=== PATIENT | male | born 1945 | race African-American/Black ===

== ENCOUNTER 2019-12-11 11:01 | Inpatient (IN) ==
[2019-12-11 11:34] LABS: Basophils % 0.4 % (0.0-0.8); Eosinophils # 0.2 10*3/uL (0.0-0.87); Eosinophils % 3.1 % (0.00-10.9); Hematocrit 22.5 VOL% (42.0-52.0); Hemoglobin 6.9 GM/DL (14.0-18.0); Immature Granulocytes Absolute 0.27 #; Lymphocytes # 1.6 10*3/uL (1.4-4.0); Mean Corpuscular HGB Conc 30.7 GM/DL (32-36); Mean Corpuscular Volume 99.6 FL (87-102); Mean Platelet Volume 10.4 FL (9.6-12.0); Monocytes % 8.4 % (1.7-12.7); Neutrophils % 61.1 % (38.7-73.9); Platelet Count 255 T/CUMM (130-400); Red Blood Count 2.26 MC/CUMM (3.8-5.5); Red Cell Distribution Width 14.6 % (9.3-17.3); White Blood Count 6.8 T/CUMM (4-12)
[2019-12-11 11:59] LABS: Albumin 3.4 G/DL (3.4-5.0); Bilirubin,Total 0.4 MG/DL (0.2-1.0); Osmolality,Calculated 306.8 MOS/KG (273-304)
[2019-12-11] MEDS ORDERED: FUROSEMIDE 40 MG/4 ML VIAL IV STA (13:04)
[2019-12-11] MEDS ORDERED: ONDANSETRON 4 MG/2 ML VIAL IV PRN (13:30)
[2019-12-11] MEDS ORDERED: BISACODYL 5 MG TABLET PO PRN (13:30)
[2019-12-11] MEDS ORDERED: GLUCAGON 1 MG VIAL IM PRN (13:42)
[2019-12-11] MEDS ORDERED: DEXTROSE 10% 250 ML BAG IV PRN (13:42)
[2019-12-11 14:07] LABS: % Iron Saturation 27.8 % (18-50); Ferritin 364.9 ng/ml (26-388)
[2019-12-11 14:13] LABS: Risk Ratio 1.77; Thyroid Stimulating Hormone 2.48 uIU/ml (0.358-3.74); VLDL CHOLESTEROL 18.8 MG/DL
[2019-12-11 14:14] LABS: Basophils % 0.6 % (0.0-0.8); Eosinophils # 0.2 10*3/uL (0.0-0.87); Eosinophils % 2.9 % (0.00-10.9); Hematocrit 22.4 VOL% (42.0-52.0); Immature Granulocytes % 4.1 %; Immature Granulocytes Absolute 0.28 #; Lymphocytes # 1.6 10*3/uL (1.4-4.0); Lymphocytes % 23.1 % (21.2-54.2); Mean Corpuscular HGB Conc 31.3 GM/DL (32-36); Mean Corpuscular Volume 99.1 FL (87-102); Mean Platelet Volume 11.9 FL (9.6-12.0); Monocytes % 9.7 % (1.7-12.7); NRBC # 0.02 10*3/uL; Neutrophils % 59.6 % (38.7-73.9); Platelet Count 273 T/CUMM (130-400); Red Blood Count 2.26 MC/CUMM (3.8-5.5); Red Cell Distribution Width 14.5 % (9.3-17.3); White Blood Count 6.8 T/CUMM (4-12)
[2019-12-11 14:40] LABS: Folate 7.9 NG/ML (5.4-24.0); Vitamin B12 555 PG/ML (211-911)
[2019-12-11 15:29] LABS: Apearance,Urine CLEAR (Clear); Bacteria,Urine Occasional /HPF (Few); Bilirubin,Urine Negative (Negative); Blood, Urine Negative (Negative); Glucose,Urine (UA) 50 mg/dL (Negative); Ketones,Urine Negative (Negative); Mucus,Urine Occasional /LPF (Occasional); Nitrite,Urine Negative (Negative); Protein,Urine >=500 MG/DL; Squamous Epithelial Cell,Urine Occasional /HPF (0-10); Urine Color Straw (Yellow); Urine Urobilinogen < 2.0 EU/DL (0.2-1.0); WBC,Urine 1 /HPF (0-6)
[2019-12-11] MEDS: INSULIN LISPRO 100 UNIT/ML SUBCUT SCH ×2 (15:30→21:03)
[2019-12-11] MEDS ORDERED: INFLUENZA VIRUS VACCINE 0.5 ML SYRINGE IM ONE (15:34)
[2019-12-11 15:36] LABS: Sedimentation Rate-Westergren 91 MM/HR (0-20)
[2019-12-11] MEDS: hydrALAZINE 25 MG TABLET PO SCH ×2 (15:36→21:02)
[2019-12-11] MEDS ORDERED: FUROSEMIDE 40 MG/4 ML VIAL IV SCH (16:00)
[2019-12-11] MEDS: ATORVASTATIN 80 MG TABLET PO SCH (21:03)
[2019-12-11] MEDS: TAMSULOSIN 0.4 MG CAPSULE PO SCH (21:03)
[2019-12-12 05:11] LABS: Basophils % 0.4 % (0.0-0.8); Eosinophils # 0.2 10*3/uL (0.0-0.87); Immature Granulocytes % 2.6 %; Immature Granulocytes Absolute 0.13 #; Lymphocytes % 19.6 % (21.2-54.2); Mean Corpuscular HGB Conc 30.6 GM/DL (32-36); Mean Platelet Volume 10.8 FL (9.6-12.0); Monocytes % 11.9 % (1.7-12.7); Neutrophils % 62.5 % (38.7-73.9); Platelet Count 190 T/CUMM (130-400); Red Cell Distribution Width 14.4 % (9.3-17.3); White Blood Count 5.1 T/CUMM (4-12)
[2019-12-12 05:14] LABS: Hemoglobin 5.5 GM/DL (14.0-18.0)
[2019-12-12 05:36] LABS: Osmolality,Calculated 306.7 MOS/KG (273-304)
[2019-12-12 06:38] LABS: Hematocrit 18.2 VOL% (42.0-52.0)
[2019-12-12 06:40] LABS: Hemoglobin 5.5 GM/DL (14.0-18.0)
[2019-12-12] MEDS ORDERED: SODIUM CHLORIDE 0.9% 1,000 ML IV PRN (06:46)
[2019-12-12] MEDS ORDERED: DEXTROSE 10% 250 ML BAG IV PRN (07:00)
[2019-12-12] MEDS: INSULIN LISPRO 100 UNIT/ML SUBCUT SCH ×4 (08:52→20:47)
[2019-12-12] MEDS: FUROSEMIDE 40 MG/4 ML VIAL IV SCH ×2 (08:59→16:59)
[2019-12-12] MEDS: ISOSORBIDE MONONITRATE 60 MG TABLET PO SCH (08:59)
[2019-12-12] MEDS: METOPROLOL SUCCINATE XL 50 MG TABLET PO SCH (08:59)
[2019-12-12] MEDS: CHOLECALCIFEROL 5,000 UNIT TABLET PO SCH (08:59)
[2019-12-12] MEDS: TAMSULOSIN 0.4 MG CAPSULE PO SCH ×2 (09:00→20:46)
[2019-12-12] MEDS: PANTOPRAZOLE 40 MG TABLET PO SCH (09:00)
[2019-12-12] MEDS: hydrALAZINE 25 MG TABLET PO SCH (09:00)
[2019-12-12] MEDS: amLODIPine 10 MG TABLET PO SCH (09:00)
[2019-12-12 19:03] LABS: Hematocrit 22.3 VOL% (42.0-52.0)
[2019-12-12] MEDS: ATORVASTATIN 80 MG TABLET PO SCH (20:46)
[2019-12-13 05:09] LABS: Basophils % 0.7 % (0.0-0.8); Eosinophils # 0.1 10*3/uL (0.0-0.87); Eosinophils % 2.6 % (0.00-10.9); Hematocrit 20.6 VOL% (42.0-52.0); Hemoglobin 6.5 GM/DL (14.0-18.0); Immature Granulocytes % 1.6 %; Immature Granulocytes Absolute 0.09 #; Lymphocytes % 18.3 % (21.2-54.2); Mean Corpuscular HGB Conc 31.6 GM/DL (32-36); Mean Corpuscular Volume 98.6 FL (87-102); Mean Platelet Volume 10.9 FL (9.6-12.0); Monocytes % 12.2 % (1.7-12.7); Neutrophils % 64.6 % (38.7-73.9); Platelet Count 201 T/CUMM (130-400); Red Blood Count 2.09 MC/CUMM (3.8-5.5); Red Cell Distribution Width 14.7 % (9.3-17.3); White Blood Count 5.5 T/CUMM (4-12)
[2019-12-13 05:29] LABS: Osmolality,Calculated 305.8 MOS/KG (273-304)
[2019-12-13] MEDS: INSULIN LISPRO 100 UNIT/ML SUBCUT SCH ×4 (08:07→22:02)
[2019-12-13] MEDS: FUROSEMIDE 40 MG/4 ML VIAL IV SCH ×2 (08:47→17:32)
[2019-12-13] MEDS: TAMSULOSIN 0.4 MG CAPSULE PO SCH ×2 (08:48→20:56)
[2019-12-13] MEDS: PANTOPRAZOLE 40 MG TABLET PO SCH (08:48)
[2019-12-13] MEDS: METOPROLOL SUCCINATE XL 50 MG TABLET PO SCH (08:48)
[2019-12-13] MEDS: ISOSORBIDE MONONITRATE 60 MG TABLET PO SCH (08:48)
[2019-12-13] MEDS: amLODIPine 10 MG TABLET PO SCH (08:48)
[2019-12-13] MEDS: BISACODYL 5 MG TABLET PO SCH (08:48)
[2019-12-13] MEDS: CHOLECALCIFEROL 5,000 UNIT TABLET PO SCH (08:48)
[2019-12-13] MEDS ORDERED: ceFAZolin 1,000 MG in SYRINGE 1 EACH IV ONE (13:56)
[2019-12-13] MEDS ORDERED: BUPIVACAINE 0.5% 50 ML VIAL ONE (14:51)
[2019-12-13] MEDS ORDERED: LIDOCAINE 1%/EPI INJ 20 ML VIAL ONE (14:51)
[2019-12-13] MEDS ORDERED: HEPARIN 5,000 UNIT/1 ML VIAL ONE (14:51)
[2019-12-13] MEDS ORDERED: propofoL 200 MG/20 ML VIAL IV ONE (16:57)
[2019-12-13] MEDS ORDERED: LIDOCAINE 2% 5 ML VIAL ONE (16:58)
[2019-12-13] MEDS ORDERED: fentaNYL 100 MCG/2 ML VIAL ONE (16:58)
[2019-12-13 17:13] LABS: Hepatitis B Core IgM Quant 0.08 Index; Hepatitis B Surface Ag Quant < 0.10 Index; Hepatitis B Surface Ag Result Negative (Negative); Hepatitis C Virus Ab Quant 0.03 Index; Hepatitis C Virus Ab Result Negative (Negative)
[2019-12-13] MEDS: ATORVASTATIN 80 MG TABLET PO SCH (20:56)
[2019-12-14 04:56] LABS: Basophils % 0.6 % (0.0-0.8); Eosinophils # 0.1 10*3/uL (0.0-0.87); Eosinophils % 1.9 % (0.00-10.9); Hematocrit 23.4 VOL% (42.0-52.0); Hemoglobin 7.6 GM/DL (14.0-18.0); Immature Granulocytes % 1.3 %; Immature Granulocytes Absolute 0.09 #; Lymphocytes # 0.8 10*3/uL (1.4-4.0); Lymphocytes % 11.2 % (21.2-54.2); Mean Corpuscular HGB Conc 32.5 GM/DL (32-36); Mean Corpuscular Volume 95.9 FL (87-102); Mean Platelet Volume 11.1 FL (9.6-12.0); Monocytes % 10.6 % (1.7-12.7); NRBC # 0.03 10*3/uL; Neutrophils % 74.4 % (38.7-73.9); Platelet Count 195 T/CUMM (130-400); Red Blood Count 2.44 MC/CUMM (3.8-5.5); Red Cell Distribution Width 15.4 % (9.3-17.3); White Blood Count 6.9 T/CUMM (4-12)
[2019-12-14 05:50] LABS: Osmolality,Calculated 295.3 MOS/KG (273-304)
[2019-12-14] MEDS: INSULIN LISPRO 100 UNIT/ML SUBCUT SCH (08:24)
[2019-12-14] MEDS: FUROSEMIDE 40 MG/4 ML VIAL IV SCH (09:01)
[2019-12-14] MEDS ORDERED: HEPARIN 10,000 UNIT/10 ML VIAL IV PRN (10:29)
[2019-12-14] MEDS: METOPROLOL SUCCINATE XL 50 MG TABLET PO SCH (11:29)
[2019-12-14] MEDS: amLODIPine 10 MG TABLET PO SCH (11:29)
[2019-12-14] MEDS: CHOLECALCIFEROL 5,000 UNIT TABLET PO SCH (11:29)
[2019-12-14] MEDS: BISACODYL 5 MG TABLET PO SCH (11:29)
[2019-12-14] MEDS: TAMSULOSIN 0.4 MG CAPSULE PO SCH ×2 (11:29→20:40)
[2019-12-14] MEDS: PANTOPRAZOLE 40 MG TABLET PO SCH (11:29)
[2019-12-14] MEDS: ISOSORBIDE MONONITRATE 60 MG TABLET PO SCH (11:29)
[2019-12-14] MEDS: ATORVASTATIN 80 MG TABLET PO SCH (20:40)
[2019-12-15 04:48] LABS: Basophils % 0.5 % (0.0-0.8); Eosinophils # 0.1 10*3/uL (0.0-0.87); Eosinophils % 2.1 % (0.00-10.9); Hematocrit 22.7 VOL% (42.0-52.0); Hemoglobin 7.5 GM/DL (14.0-18.0); Immature Granulocytes Absolute 0.06 #; Mean Platelet Volume 10.7 FL (9.6-12.0); Monocytes % 13.2 % (1.7-12.7); Neutrophils % 67.2 % (38.7-73.9); Platelet Count 190 T/CUMM (130-400); Red Blood Count 2.44 MC/CUMM (3.8-5.5); Red Cell Distribution Width 14.6 % (9.3-17.3); White Blood Count 6.1 T/CUMM (4-12)
[2019-12-15 05:32] LABS: Calcium 7.7 MG/DL (8.5-10.1); Osmolality,Calculated 284.4 MOS/KG (273-304)
[2019-12-15] MEDS: BISACODYL 5 MG TABLET PO SCH (08:15)
[2019-12-15] MEDS: ISOSORBIDE MONONITRATE 60 MG TABLET PO SCH (08:16)
[2019-12-15] MEDS: METOPROLOL SUCCINATE XL 50 MG TABLET PO SCH (08:16)
[2019-12-15] MEDS: amLODIPine 10 MG TABLET PO SCH (08:16)
[2019-12-15] MEDS: PANTOPRAZOLE 40 MG TABLET PO SCH (08:16)
[2019-12-15] MEDS: CHOLECALCIFEROL 5,000 UNIT TABLET PO SCH (08:16)
[2019-12-15] MEDS: TAMSULOSIN 0.4 MG CAPSULE PO SCH ×2 (08:16→21:20)
[2019-12-15] MEDS: ATORVASTATIN 80 MG TABLET PO SCH (21:19)
[2019-12-16 03:33] LABS: Basophils % 0.4 % (0.0-0.8); Eosinophils # 0.1 10*3/uL (0.0-0.87); Eosinophils % 1.8 % (0.00-10.9); Hemoglobin 8.9 GM/DL (14.0-18.0); Immature Granulocytes % 0.9 %; Immature Granulocytes Absolute 0.07 #; Lymphocytes # 0.8 10*3/uL (1.4-4.0); Lymphocytes % 10.8 % (21.2-54.2); Mean Corpuscular Volume 92.5 FL (87-102); Mean Platelet Volume 10.4 FL (9.6-12.0); Monocytes % 14.6 % (1.7-12.7); Neutrophils % 71.5 % (38.7-73.9); Platelet Count 184 T/CUMM (130-400); Red Blood Count 2.92 MC/CUMM (3.8-5.5); Red Cell Distribution Width 14.7 % (9.3-17.3); White Blood Count 7.6 T/CUMM (4-12)
[2019-12-16] MEDS: ACETAMINOPHEN 325 MG TABLET PO PRN ×2 (03:36→08:17)
[2019-12-16 03:59] LABS: Osmolality,Calculated 277.5 MOS/KG (273-304)
[2019-12-16 08:04] VITALS: BP 172/70
[2019-12-16] MEDS: BISACODYL 5 MG TABLET PO SCH (08:16)
[2019-12-16] MEDS: PANTOPRAZOLE 40 MG TABLET PO SCH (08:16)
[2019-12-16] MEDS: METOPROLOL SUCCINATE XL 50 MG TABLET PO SCH (08:16)
[2019-12-16] MEDS: CHOLECALCIFEROL 5,000 UNIT TABLET PO SCH (08:16)
[2019-12-16] MEDS: amLODIPine 10 MG TABLET PO SCH (08:16)
[2019-12-16] MEDS: TAMSULOSIN 0.4 MG CAPSULE PO SCH (08:17)
[2019-12-16] MEDS: ISOSORBIDE MONONITRATE 60 MG TABLET PO SCH (08:17)
== END 2019-12-16 11:01 | disposition home or self-care (01) | DRG 674 ==
LOC: N.ED 11:01 → N.EDINP 13:30 → N.2E 14:58
PROVIDERS: ADMIT Internal Medicine; ATTEND Internal Medicine